=== PATIENT | female | born 1980 | race Asian ===

== ENCOUNTER 2016-09-18 06:34 | Emergency (ER) | payer OTHER ==
[2016-09-18 07:09] LABS: BASOPHIL % 0.5 % (0-2); PLATELET COUNT 334 x10^3mcL (130-400)
[2016-09-18 07:15] LABS: CALCIUM 8.9 mg/dL (8.5-10.1); CARBON DIOXIDE 26.4 mmol/L (21-32); CHLORIDE SERUM 102 mmol/L (98-107); CREATININE SERUM 0.9 mg/dL (0.6-1.0); GFR1 > 60 mL/min; GLUCOSE SERUM 165 mg/dL (74-106); POTASSIUM SERUM 3.7 mmol/L (3.5-5.1); SODIUM SERUM 139 mmol/L (136-145)
[2016-09-18 07:19] LABS: ALKALINE PHOSPHATASE 72 U/L (46-116); ALT/SGPT 31 U/L (14-59); AST/SGOT 18 U/L (15-37); LIPASE 195 IU/L (73-393); TOTAL PROTEIN, SERUM 8.2 g/dL (6.4-8.2)
[2016-09-18 10:32] VITALS: BP 103/73
== END 2016-09-18 10:32 | disposition home or self-care (01) ==
LOC: ED 06:34
PROVIDERS: Emergency Medicine
DX: N20.0 Calculus of kidney (principal); I10 Essential (primary) hypertension
CPT/HCPCS: J1885; J2405; J3010; J7030; Q0162